=== PATIENT | male | born 1965 | race African-American/Black ===

== ENCOUNTER 2017-09-08 19:55 | Emergency (ER) | payer BC ==
[~2017-09-08] VITALS: Ht 175.3 cm; Wt 117.9 kg
[2017-09-08] MEDS ORDERED: KETOROLAC TROMETHAMINE 60 MG INJ IM ONE ×2 (21:30→21:43)
--- NOTE | 2017-09-08 21:45 | NUR ---
Crutches dispensed. Pt instructed on proper use of crutches. Patient able to demonstrate correct use of crutches.
--- NOTE | 2017-09-08 21:58 | NUR ---
Patient discharged to home in stable conditon with family taking patient home. Written and verbal after care instructions given. Patient verbalizes understanding of instructions. Walked out of Er with steady gait with family members
[2017-09-08 21:59] VITALS: BP 158/99
[2017-09-08] MEDS ORDERED: HYDROCODONE/APAP 10-325 MG TABLET PO ONE (22:00)
[2017-09-08] MEDS ORDERED: HYDROCODONE/APAP 10-325 MG TABLET ONE (22:07)
== END 2017-09-08 22:00 | disposition home or self-care (01) ==
LOC: ER 19:56
DX: S83.004A Unspecified dislocation of right patella, initial encounter (principal); Z88.0 Allergy status to penicillin; W10.9XXA Fall (on) (from) unspecified stairs and steps, initial encounter; Y92.89 Other specified places as the place of occurrence of the external cause; Y93.89 Activity, other specified; Y99.8 Other external cause status
CPT/HCPCS: 73564; 96372; 99284; A4663; J1885